=== PATIENT | female | born 2000 ===

== ENCOUNTER → 2018-02-09 | Outpatient (CLI) | payer OTHER ==
[2018-02-10 10:59] LABS: Candida species (DNA Probe) Positive (NEGATIVE); G. vaginalis (DNA Probe) Positive (NEGATIVE); T. vaginalis (DNA Probe) Negative (NEGATIVE)
== END | disposition home or self-care (01) ==
LOC: LAB SHORT 11:39 → LAB 11:39
PROVIDERS: Advanced Practice Midwife
DX: N89.8 Other specified noninflammatory disorders of vagina (principal)
CPT/HCPCS: 87480; 87510; 87660

== ENCOUNTER 2024-06-01 11:25 | Inpatient (IN) | payer BC ==
[~2024-06-01] VITALS: Ht 170.2 cm; Wt 123.6 kg
[2024-06-01] VITALS (24 sets, daily range): BP systolic 100–141; BP diastolic 55–84
[~2024-06-01 11:25] MED LIST: PRENATAL TABLE1 EAC2 PO
[2024-06-01] MEDS ORDERED: Carboprost Tromethamine 250 MCG/ML 1ML Amp IM PRN (11:45)
[2024-06-01] MEDS ORDERED: OXYTOCIN/RINGER'S LACTATE 500 ML IV PRN (11:45)
[2024-06-01] MEDS ORDERED: FentaNYL Citrate 50 MCG/ML 2 ML Injection IV PRN (11:45)
[2024-06-01] MEDS ORDERED: Misoprostol 200 MCG Tab BC PRN (11:45)
[2024-06-01] MEDS ORDERED: Methylergonovine Maleate 0.2MG / ML 1ML Amp IM PRN (11:45)
[2024-06-01] MEDS ORDERED: FentaNYL 2mcg/ml-Bup 0.1% Epd 250 ML EPI PRN (11:45)
[2024-06-01] MEDS ORDERED: Misoprostol 200 MCG Tab PR PRN (11:45)
[2024-06-01] MEDS ORDERED: Lactated Ringer's 1,000 ML IV PRN (11:45)
[2024-06-01] MEDS ORDERED: Ondansetron HCl 2 MG / ML 2ML Vial IV PRN (11:45)
[2024-06-01] MEDS ORDERED: Lactated Ringer's 1,000 ML IV SCH ×3 (11:45→11:59)
[2024-06-01] MEDS ORDERED: Oxytocin 10 Unit / ML Vial IM PRN (11:45)
[2024-06-01] MEDS ORDERED: Tranexamic Acid 100 ML IV SCH (11:45)
[2024-06-01] MEDS ORDERED: Acetaminophen 500 MG Tab PO PRN (11:45)
[2024-06-01] MEDS ORDERED: ePHEDrine Sulfate 50 MG/ML 1ML Injection XX PRN (11:45)
[2024-06-01] MEDS ORDERED: Calcium Carbonate 500 MG Tab Chew PO SCH (11:50)
[2024-06-01 12:23] LABS: BASOPHILS ABSOLUTE AUTO 0.04 K/mm3 (0.00-0.23); BASOPHILS PERCENT AUTO 0 % (0-2); EOSINOPHILS ABSOLUTE AUTO 0.07 K/mm3 (0.00-0.68); EOSINOPHILS PERCENT AUTO 1 % (0-6); Hematocrit 40.4 % (33.0-51.0); Hemoglobin 13.6 g/dL (11.5-16.0); IMMATURE GRAN PERCENT AUTO 1 % (0-1); LYMPHOCYTES ABSOLUTE AUTO 2.28 K/mm3 (0.84-5.20); LYMPHOCYTES PERCENT AUTO 15 % (21-46); MONOCYTES ABSOLUTE AUTO 0.85 K/mm3 (0.16-1.47); MONOCYTES PERCENT AUTO 6 % (4-13); Mean Corpuscular HGB 28.2 pg (26.0-34.0); Mean Corpuscular HGB Conc 33.7 g/dL (31.5-36.5); Mean Corpuscular Volume 84 fL (80-100); Mean Platelet Volume 11.4 fL (9.1-12.4); NEUTROPHILS ABSOLUTE AUTO 11.88 K/mm3 (1.96-9.15); NEUTROPHILS PERCENT AUTO 78 % (41-73); Platelet Count 191 K/mm3 (150-400); RDW Coefficient Variation 14.2 % (11.7-14.2); Red Blood Cell Count 4.82 M/mm3 (3.80-5.20); White Blood Cell Count 15.22 K/mm3 (4.00-11.30)
[2024-06-01] MEDS ORDERED: OXYTOCIN/RINGER'S LACTATE 500 ML IV SCH (13:20)
[2024-06-01] MEDS ORDERED: FentaNYL Citrate 50 MCG/ML 2 ML Injection ONE (18:14)
[2024-06-02] VITALS (23 sets, daily range): BP systolic 100–131; BP diastolic 53–84
[2024-06-02] MEDS ORDERED: diphenhydrAMINE HCl 12.5 MG/5 ML 5MLUDC (Alcohol/Dye Free) PO ONE (05:25)
[2024-06-02] MEDS ORDERED: DIPH25 PO ONE (05:35)
[2024-06-02] MEDS ORDERED: Citric Acid/Sodium Citrate 30 ML BTL PO ONE (08:50)
[2024-06-02] MEDS ORDERED: Lactated Ringer's 1,000 ML IV SCH ×4 (08:50→12:20)
[2024-06-02] MEDS ORDERED: CeFAZolin Sodium 2,000 MG in NS 100 ML IV SCH (08:50)
[2024-06-02] MEDS ORDERED: Metoclopramide HCl 5MG / ML 2ML Vial IV ONE (08:50)
[2024-06-02] MEDS ORDERED: Morphine Sulfate/PF 1 MG/ML 10MLVIAL ONE (09:19)
[2024-06-02] MEDS ORDERED: Lidocaine 2%-Epineph 1:200000 20 ML SDV ONE (09:19)
[2024-06-02] MEDS ORDERED: Sodium Bicarb 8.4% 1 MEQ/ML 50 ML Vial ONE (09:23)
[2024-06-02] MEDS ORDERED: FentaNYL Citrate 50 MCG/ML 2 ML Injection ONE (10:11)
[2024-06-02] MEDS ORDERED: Methylergonovine Maleate 0.2MG / ML 1ML Amp ONE (10:33)
[2024-06-02] MEDS ORDERED: Ketorolac Tromethamine 30mg Vial ONE (10:45)
[2024-06-02] MEDS ORDERED: Dexamethasone Sod Phos 10 MG/ML 1ML VIAL ONE (10:45)
[2024-06-02] MEDS ORDERED: Phenylephrine HCl 100 MCG/ML-NS 10MLSYR (1MG/10ML) ONE (10:45)
[2024-06-02] MEDS ORDERED: Ondansetron HCl 2 MG / ML 2ML Vial ONE (10:45)
[2024-06-02] MEDS ORDERED: Oxytocin 10 Unit / ML Vial ONE (10:45)
--- NOTE | 2024-06-02 10:48 | NUR ---
06/02/24 1048 Christal Horner BABY BORN BORN AT 1027 [facility] CATH AND EPIDURAL IN PLACE UPON ARRIVAL TO OR. CORD BLOOD SENT WITH CLIFF ESTRADA RN. CORD SEGMENT SENT WITH GITA DIEGO.
[2024-06-02] MEDS ORDERED: DiphenhydrAMINE HCl 50 MG/ML 1ML Vial ONE (10:57)
[2024-06-02 11:00] LABS: PCO2 Cord - Arterial 44.7 mmHg (40-50); pH Cord - Arterial 7.31 (7.28-7.35)
[2024-06-02 11:02] LABS: PCO2 Cord - Venous 42.4 mmHg (40-50); PO2 Cord - Venous 21.1 mmHg (28-32); pH Umbilical Cord - Venous 7.33 (7.26-7.35)
[2024-06-02] MEDS ORDERED: Calcium Carbonate 500 MG Tab Chew PO SCH (11:50)
[2024-06-02] MEDS ORDERED: DiphenhydrAMINE HCL 25 MG Cap PO PRN (12:10)
[2024-06-02] MEDS ORDERED: OxyCODONE HCL 5 MG TAB PO PRN (12:10)
[2024-06-02] MEDS ORDERED: Ondansetron HCl 2 MG / ML 2ML Vial IV PRN (12:10)
[2024-06-02] MEDS ORDERED: Lanolin Cream TOP PRN (12:15)
[2024-06-02] MEDS ORDERED: OXYTOCIN/RINGER'S LACTATE 500 ML IV SCH (12:15)
[2024-06-02] MEDS ORDERED: Magnesium Hydroxide Conc 10 ML UDC PO PRN (12:15)
[2024-06-02] MEDS ORDERED: Acetaminophen 500 MG Tab PO PRN (12:15)
[2024-06-02] MEDS ORDERED: Methylergonovine Maleate 0.2 MG Tab PO PRN (12:15)
[2024-06-02] MEDS ORDERED: Misoprostol 200 MCG Tab PR PRN (12:15)
[2024-06-02] MEDS ORDERED: Simethicone 80 MG Chew PO PRN (12:20)
[2024-06-02] MEDS ORDERED: OxyCODONE 5 mg/Acetamin 325 mg TABLET PO PRN (12:20)
[2024-06-02] MEDS ORDERED: Ketorolac Tromethamine 30mg Vial IV SCH (13:00)
[2024-06-02] MEDS ORDERED: Ibuprofen 400 MG Tab PO SCH (16:00)
--- NOTE | 2024-06-02 19:06 | NUR ---
bedside report done with night rn jeffy
[2024-06-02] MEDS ORDERED: Docusate Sodium 100 MG Cap PO SCH (21:00)
[2024-06-03] VITALS (7 sets, daily range): BP systolic 96–119; BP diastolic 51–64
[2024-06-03 06:00] LABS: BASOPHILS ABSOLUTE AUTO 0.03 K/mm3 (0.00-0.23); BASOPHILS PERCENT AUTO 0 % (0-2); EOSINOPHILS ABSOLUTE AUTO 0.06 K/mm3 (0.00-0.68); EOSINOPHILS PERCENT AUTO 0 % (0-6); Hematocrit 29.1 % (33.0-51.0); Hemoglobin 9.9 g/dL (11.5-16.0); IMMATURE GRAN ABSOLUTE AUTO 0.12 K/mm3 (0.00-0.10); IMMATURE GRAN PERCENT AUTO 1 % (0-1); LYMPHOCYTES ABSOLUTE AUTO 1.92 K/mm3 (0.84-5.20); LYMPHOCYTES PERCENT AUTO 11 % (21-46); MONOCYTES ABSOLUTE AUTO 1.14 K/mm3 (0.16-1.47); MONOCYTES PERCENT AUTO 6 % (4-13); Mean Corpuscular HGB 28.9 pg (26.0-34.0); Mean Corpuscular Volume 85 fL (80-100); Mean Platelet Volume 11.3 fL (9.1-12.4); NEUTROPHILS ABSOLUTE AUTO 14.57 K/mm3 (1.96-9.15); NEUTROPHILS PERCENT AUTO 82 % (41-73); Platelet Count 130 K/mm3 (150-400); RDW Coefficient Variation 14.5 % (11.7-14.2); RDW Standard Deviation 44.2 fL (35.1-46.3); Red Blood Cell Count 3.43 M/mm3 (3.80-5.20); White Blood Cell Count 17.84 K/mm3 (4.00-11.30)
[2024-06-03] MEDS ORDERED: Percocet 5-3251 EACH PO (07:50)
[2024-06-03] MEDS ORDERED: IBUP800 PO (07:50)
[2024-06-03] MEDS ORDERED: DOCU100 PO (07:51)
[2024-06-03] MEDS ORDERED: Prenatal Vit/FE Fumarate/FA 1 Tab PO SCH (09:00)
[2024-06-04 00:05] VITALS: BP 118/63
[2024-06-04 04:24] VITALS: BP 116/57
[2024-06-04 08:42] VITALS: BP 131/58
--- NOTE | 2024-06-04 12:52 | NUR ---
PT D/C'D AT 1115. ALL DISCHARGE INSTRUCTIONS REVIEWED WITH PT AND SPOUSE. BOTH VERBALIZED UNDERSTANDING. BELONGINGS TAKEN HOME WITH PT. PT ESCORTED TO PRIVATE CAR.
== END 2024-06-04 11:18 | disposition home or self-care (01) | DRG 788 ==
LOC: OBS 11:25 → BC 11:25 → OBS 11:50 → BC 11:52
PROVIDERS: ADMIT Obstetrics & Gynecology
PROC: 10D00Z1 Extraction of Products of Conception, Low, Open Approach (ICD-10-PCS; principal; 2024-06-02 09:15)
DX: O66.9 Obstructed labor, unspecified (principal); Z37.0 Single live birth; Z3A.39 39 weeks gestation of pregnancy; Z88.2 Allergy status to sulfonamides; Z91.011 Allergy to milk products; Z79.899 Other long term (current) drug therapy; Z98.890 Other specified postprocedural states
CPT/HCPCS: 36415; 51702; 82803; 85025; 86850; 86900; 86901; 86923; A9270; J0690; J1100; J1200; J1885; J2210; J2274; J2371; J2405; J2590; J2765; J3010; J7120